=== PATIENT | female | born 1980 | race Caucasian/White ===

== ENCOUNTER 2022-01-26 01:44 | Emergency (ER) | payer OTHER ==
[~2022-01-26] VITALS: Ht 165.1 cm; Wt 85.0 kg
[2022-01-26] MEDS ORDERED: LORAZEPAM 1MG TABLET PO ONE (04:15)
[2022-01-26 04:43] LABS: CLARITY URINE CLOUDY (CLEAR); COLOR URINE YELLOW (YELLOW); KETONES URINE 2+ (NEGATIVE); LEUKOCYTE ESTERASE URINE NEGATIVE (NEGATIVE); NITRITE URINE NEGATIVE (NEGATIVE); OCCULT BLOOD URINE NEGATIVE (NEGATIVE); PROTEIN URINE 1+ (NEGATIVE); SPECIFIC GRAVITY URINE 1.021 (1.005-1.030); UROBILINOGEN URINE 0.2 E.U./dL (0.2-1.0)
[2022-01-26 06:30] VITALS: BP 115/77
[2022-01-26] MEDS ORDERED: IBUP-2029 MT (06:32)
[2022-01-26] MEDS ORDERED: TOPUD MT (06:32)
== END 2022-01-26 06:56 | disposition home or self-care (01) ==
LOC: ER 01:54
DX: R55 Syncope and collapse (principal); R10.2 Pelvic and perineal pain; F41.9 Anxiety disorder, unspecified
CPT/HCPCS: 76830; 76856; 81003; 81025; 93005; 99285

== ENCOUNTER 2024-08-15 15:42 | Emergency (ER) | payer OTHER ==
[~2024-08-15] VITALS: Ht 160 cm; Wt 65.0 kg
[~2024-08-15 15:42] MED LIST: IBUP-2029 MT; TOPUD MT
[2024-08-15 15:43] VITALS: O2SAT 99
[2024-08-15] MEDS: MORPHINE SULFATE 2 MG/ML INJ (NOT FOR IM USE) IV ONE (17:36)
[2024-08-15] MEDS: SODIUM CHLORIDE 0.9% 1,000 ML IV ONE ×2 (17:36→21:58)
[2024-08-15 17:37] LABS: BASOPHILS % 0.6 % (0.0-2.0); EOSINOPHILS % 0.4 % (0.0-5.0); HEMATOCRIT. 45.2 % (36.0-48.0); LYMPHOCYTES % 13.4 % (20.0-50.0); MEAN CORPUSCULAR HEMOGLOBIN 27.6 pg (28.0-32.0); MEAN CORPUSCULAR HGB CONC 33.2 g/dL (31.0-37.0); MEAN CORPUSCULAR VOLUME 83.2 fL (81.0-99.0); MEAN PLATELET VOLUME 7.8 fl (7.4-10.4); MONOCYTES % 4.5 % (2.0-8.0); NEUTROPHILS % 81.1 % (40.0-76.0); PLATELET 272 x1000/uL (130-400); RED BLOOD CELL COUNT 5.43 mill/uL (4.2-5.4); RED CELL DISTRIBUTION WIDTH 13.3 % (11.6-14.6); WHITE BLOOD COUNT 12.8 x1000/uL (4.5-11.0)
[2024-08-15] MEDS: ONDANSETRON HCL 4MG/2ML INJ IV ONE ×2 (17:37→21:58)
[2024-08-15] MEDS: FAMOTIDINE 20MG/2ML VIAL IV ONE (17:37)
[2024-08-15 17:45] LABS: COLOR URINE YELLOW (YELLOW); GLUCOSE URINE NEGATIVE (NEGATIVE); KETONES URINE 2+ (NEGATIVE); LEUKOCYTE ESTERASE URINE TRACE (NEGATIVE); NITRITE URINE NEGATIVE (NEGATIVE); OCCULT BLOOD URINE NEGATIVE (NEGATIVE); PROTEIN URINE 1+ (NEGATIVE); SPECIFIC GRAVITY URINE 1.022 (1.005-1.030)
[2024-08-15 17:47] LABS: PROTHROMBIN TIME 10.8 sec (9.6-11.0)
[2024-08-15 17:54] LABS: CHLORIDE 103 mEq/L (98-107); POTASSIUM 3.4 mEq/L (3.5-5.1); SODIUM 142 mEq/L (136-145)
[2024-08-15 17:56] LABS: CALCIUM 9.4 mg/dL (8.7-10.4); CARBON DIOXIDE 25 mEq/L (21-32)
[2024-08-15 18:01] LABS: GLUCOSE 141 mg/dL (70-105); UREA NITROGEN BLOOD 11 mg/dL (9-23)
[2024-08-15 18:03] LABS: ALANINE AMINOTRANSFERASE 194 IU/L (10-49); ALBUMIN 4.6 g/dL (3.2-4.8); ASPARTATE AMINOTRANSFERASE 112 IU/L (<34); BILIRUBIN DIRECT 0.1 mg/dL (<=3.0); BILIRUBIN TOTAL 0.5 mg/dL (0.1-1.0); PROTEIN TOTAL 8.3 g/dL (6.0-8.3)
[2024-08-15 18:04] LABS: HCG SCREEN NEGATIVE
[2024-08-15 18:09] LABS: CLARITY URINE CLEAR (CLEAR)
[2024-08-15 18:12] LABS: BACTERIA URINE NONE SEEN; MUCUS URINE 1+ /lpf (< = 2+); RBC URINE NONE SEEN /hpf (0-2); SQUAMOUS EPITHELIAL CELL URINE FEW /lpf (RARE/1+); WBC URINE 0-2 /hpf (0-2)
[2024-08-15] MEDS: DICYCLOMINE HCL 10MG/ML 2ML VIAL IM NR (18:12)
[2024-08-15] MEDS: MORPHINE SULFATE 4 MG/ML INJ (FOR IV/IM USE) IV NR (21:28)
[2024-08-15] MEDS: TAMSULOSIN HCL 0.4MG SR CAPSULE PO ONE (22:02)
[2024-08-15] MEDS: METOCLOPRAMIDE HCL 10MG/2ML VIAL IV ONE (23:20)
[2024-08-15] MEDS: KETOROLAC 30MG/ML VIAL IV ONE (23:20)
[2024-08-15] MEDS: IOHEXOL-300 100 ML BOTTLE ONE (23:31)
[2024-08-16] MEDS ORDERED: TAMS-54 MT (01:29)
[2024-08-16] MEDS ORDERED: KETO10TA2 MT (01:29)
[2024-08-16 02:03] VITALS: BP 103/53; PULSE 102; RESP 16; TEMP 37.1; O2SAT 99
== END 2024-08-16 02:01 | disposition home or self-care (01) ==
LOC: ER 15:42 → EDBEDREQ 22:09 → ER 08-16 02:01 → CANBEDREQ 08-16 02:29
DX: R11.2 Nausea with vomiting, unspecified (principal); R10.33 Periumbilical pain; F41.9 Anxiety disorder, unspecified
CPT/HCPCS: 80076; 80048; 81003; 81025; 84703; 83690; 85025; 85610; 36415; 74177; 96361; 96372; 96374; 96375; 96376; 99285; Q9967; J0500; J3490; J1885; J2765; J2405; J2270 ×2; J7030; Z7610 ×4